=== PATIENT | male | born 1965 | race Caucasian/White ===

== ENCOUNTER → 2016-08-11 | Outpatient (CLI) | payer OTHER ==
[2016-08-11 12:11] LABS: SEMEN WET PREP WBC 0-2 /HPF; WET PREP SPERM RARE/NON-MOTILE /HPF (NONE SEEN)
== END ==
LOC: CLAB 11:35
PROVIDERS: ATTEND Urology
DX: Z30.2 Encounter for sterilization (principal)
CPT/HCPCS: 89321

== ENCOUNTER → 2016-11-19 | Outpatient (CLI) | payer OTHER ==
[2016-11-19 12:26] LABS: SEMEN WET PREP WBC 0-2 /HPF; WET PREP SPERM NONE SEEN /HPF (NONE SEEN)
== END ==
LOC: CLAB 11:47
PROVIDERS: ATTEND Urology
DX: Z30.2 Encounter for sterilization (principal)
CPT/HCPCS: 89321